=== PATIENT | female | born 1980 | race Caucasian/White ===

== ENCOUNTER 2023-11-04 04:15 | Day surgery (SDC) | payer BC ==
[2023-10-28 12:28] VITALS: BMI 33.6
[~2023-11-04 04:15] MED LIST: ceFAZolin 2 GRAM PREMIX BAG IVPB ONE
[2023-11-04] MEDS ORDERED: IBUPROFEN 800 MG/8 ML IJ IVPB SCH (15:00)
[2023-11-04] MEDS ORDERED: DEXTROSE 5%-0.45% SALINE 1,000 ML IV SCH (15:00)
[2023-11-04] MEDS ORDERED: DEXAMETHASONE SOD PHOSPHATE 4 MG/1 ML VIAL ONE (15:01)
[2023-11-04] MEDS ORDERED: KETOROLAC TROMETHAMINE 30 MG/1 ML VIAL ONE (15:01)
[2023-11-04] MEDS ORDERED: LIDOCAINE HCL/PF 2% SDV 5ML VIAL ONE (15:01)
[2023-11-04] MEDS ORDERED: ONDANSETRON 4 MG/2 ML VIAL ONE (15:01)
[2023-11-04] MEDS ORDERED: PROPOFOL 20 ML ONE (15:01)
[2023-11-04] MEDS ORDERED: MIDAZOLAM HCL 2 MG/2 ML SINGLE DOSE VIAL ONE (15:01)
[2023-11-04] MEDS ORDERED: ACETAMINOPHEN INJECTION 100 ML IVPB ONE (15:02)
[2023-11-04] MEDS ORDERED: SEVOFLURANE 250 ML BTL ONE (15:02)
[2023-11-04] MEDS ORDERED: ceFAZolin SODIUM 1 GM VIAL ONE (15:13)
[2023-11-04] MEDS ORDERED: ceFAZolin 2 GRAM PREMIX BAG IVPB ONE (15:29)
[2023-11-04] MEDS ORDERED: oxyCODONE HCL 5 MG TABLET PO PRN ×2 (15:42)
[2023-11-04] MEDS ORDERED: ONDANSETRON 4 MG/2 ML VIAL IVPUSH PRN (15:42)
[2023-11-04] MEDS ORDERED: PROMETHAZINE HCL 25 MG/1 ML VIAL IVPB PRN (15:42)
[2023-11-04] MEDS ORDERED: LACTATED RINGERS SOLUTION 1,000 ML IV SCH (15:45)
[2023-11-04 15:57] VITALS: TEMP 97.6
[2023-11-04] MEDS ORDERED: oxyCODONE HCL 5 MG TABLET ONE (16:16)
[2023-11-04] MEDS ORDERED: ONDANSETRON *ODT* 4 MG TABLET ONE (16:57)
[2023-11-04] MEDS ORDERED: ONDANSETRON *ODT* 4 MG TABLET SL ONE (17:01)
[2023-11-04 17:07] VITALS: BP 108/67; PULSE 70; RESP 20
== END 2023-11-04 16:55 | disposition home or self-care (01) ==
LOC: JASU-SURG 04:15
PROVIDERS: ATTEND Urology
PROC: 0TC18ZZ Extirpation of Matter from Left Kidney, Via Natural or Artificial Opening Endoscopic (ICD-10-PCS; principal; 2023-11-04 15:00)
DX: N20.0 Calculus of kidney (principal)
CPT/HCPCS: 76000-TC-FY; 81025; 94760; C1758; Q0162